=== PATIENT | female | born 1990 | race Caucasian/White ===

== ENCOUNTER 2018-03-31 15:29 | Emergency (ER) | payer MEDICAID ==
[2018-03-31 15:38] VITALS: BP 138/97
--- NOTE | 2018-03-31 15:45 | ER Document Report ---
HPI - HPI Patient complains to provider of: Mouth pain Onset: Yesterday Onset/Duration: Gradual Pain Level: 4 Context: 27-year-old tearful female complaining of upper and lower gum and teeth pain. She also states she has a migraine headache on that side which is common for her. No visual disturbances. No fever or chills. No mouth swelling. She wants a Toradol shot and something topical to help ease the mouth pain. The headache cocktail before but she needs to drive home so she just wants a Toradol shot. Associated Symptoms: None Exacerbated by: Denies Relieved by: Denies Similar symptoms previously: Yes Recently seen / treated by doctor: No - ROS ROS below otherwise negative: Yes Systems Reviewed and Negative: Yes All other systems reviewed and negative - REPRODUCTIVE LMP: 02/20/2018 Past Medical History - General Information source: Patient - Social History Smoking Status: Never Smoker Frequency of alcohol use: None Drug Abuse: None Lives with: Family Family History: Reviewed & Not Pertinent - Medical History Medical History: Negative Surgical Hx: Negative Vertical Provider Document - CONSTITUTIONAL Agree With Documented VS: Yes Exam Limitations: No Limitations - INFECTION CONTROL TRAVEL OUTSIDE OF THE [place] IN LAST 30 DAYS: No - HEENT HEENT: Normocephalic, PERRLA. negative: Conjuctival Injection Notes: Partially erupted noninfected nor is her gingivitis third molars. No dental decay. No facial swelling. - NECK Neck: Supple. negative: Lymphadenopathy-Left, Lymphadenopathy-Right - RESPIRATORY Respiratory: Breath Sounds Normal, No Respiratory Distress - CARDIOVASCULAR Cardiovascular: Regular Rate, Regular Rhythm Course - Vital Signs Vital signs: Temp Pulse Resp BP Pulse Ox 98.6 F 89 18 138/97 H 97 03/31/18 15:37 03/31/18 15:37 03/31/18 15:37 03/31/18 15:37 03/31/18 15:37 Discharge - Discharge Clinical Impression: Partially erupted wisdom teeth, dental pain Headache Qualifiers: Headache type: unspecified Headache chronicity pattern: unspecified pattern Intractability: not intractable Qualified Code(s): R51 - Headache Condition: Good Disposition: HOME, SELF-CARE Instructions: Dentist, Toothache ([facility]), Topical Lidocaine ([facility]), Toradol Injection ([facility]), Warm Packs ([facility]) Additional Instructions: See the dentist Warm compress Return to the emergency room worsening of the symptoms Prescriptions: Ibuprofen [Motrin 800 mg Tablet] 800 mg PO Q8HP PRN #30 tablet PRN Reason:
[2018-03-31] MEDS ORDERED: KETOROLAC TROMETHAMINE 60 MG/2 ML SDV IM ONE (15:55)
[2018-03-31] MEDS ORDERED: LIDOCAINE 2% VISCOUS SOLN 20 ML UDCUP PO ONE (15:55)
[2018-03-31] MEDS ORDERED: ONDANSETRON 4 MG TAB.RAPDIS PO ONE (16:06)
== END 2018-03-31 16:14 | disposition home or self-care (01) ==
LOC: ER 15:29
DX: K00.6 Disturbances in tooth eruption (principal); G43.909 Migraine, unspecified, not intractable, without status migrainosus
CPT/HCPCS: 99283; 96372; J1885; S0119; J3490

== ENCOUNTER 2018-12-11 17:07 | Outpatient (CLI) | payer MEDICAID ==
[2018-12-11 18:00] LABS: ABSOLUTE BASOPHILS # (AUTO) 0.1 10^3/uL (0.0-0.2); ABSOLUTE EOSINOPHILS # (AUTO) 0.1 10^3/uL (0.0-0.6); ABSOLUTE LYMPHOCYTES (AUTO) 1.6 10^3/uL (0.5-4.7); ABSOLUTE MONOCYTES (AUTO) 0.6 10^3/uL (0.1-1.4); ABSOLUTE NEUT (AUTO) 7.9 10^3/uL (1.7-8.2); BASOPHILS % (AUTO) 0.7 % (0-2); EOSINOPHILS % (AUTO) 0.6 % (0-6); HEMATOCRIT 36.7 % (36.0-47.0); HEMOGLOBIN 12.7 g/dL (12.0-15.5); LYMPHOCYTES % (AUTO) 15.8 % (13-45); MEAN CORPUSCULAR HEMOGLOBIN 30.8 pg (27.0-33.4); MEAN CORPUSCULAR HGB CONC 34.5 g/dL (32.0-36.0); MEAN CORPUSCULAR VOLUME 89 fl (80-97); MONOCYTES % (AUTO) 5.8 % (3-13); PLATELET COUNT 276 10^3/uL (150-450); RED BLOOD COUNT 4.12 10^6/uL (3.72-5.28); RED CELL DISTRIBUTION WIDTH 13.4 % (11.5-14.0); SEGMENTED NEUTROPHILS % (AUTO) 77.1 % (42-78); TOTAL CELLS COUNTED % (AUTO) 100 %; WHITE BLOOD COUNT 10.3 10^3/uL (4.0-10.5)
[2018-12-11 18:14] LABS: APPEARANCE,URINE CLOUDY; BILIRUBIN,URINE NEGATIVE (NEGATIVE); COLOR,URINE AMBER; GLUCOSE, URINE NEGATIVE (NEGATIVE); KETONES,URINE NEGATIVE (NEGATIVE); LEUKOCYTE ESTERASE,URINE MODERATE (NEGATIVE); NITRITE,URINE NEGATIVE (NEGATIVE); PROTEIN,URINE 100 mg/dL (NEGATIVE); URINE SPECIFIC GRAVITY 1.027
[2018-12-11 18:40] LABS: ALANINE AMINOTRANSFERASE < 6 U/L (9-52); ALBUMIN 3.6 g/dL (3.5-5.0); ALKALINE PHOSPHATASE 158 U/L (38-126); ANION GAP 10 (5-19); ASPARTATE AMINO TRANSFERASE 14 U/L (14-36); BILIRUBIN,DIRECT 0.3 mg/dL (0.0-0.4); BILIRUBIN,TOTAL 0.3 mg/dL (0.2-1.3); BLOOD UREA NITROGEN 14 mg/dL (7-20); CALCIUM 9.3 mg/dL (8.4-10.2); CARBON DIOXIDE 21 mmol/L (22-30); CHLORIDE 108 mmol/L (98-107); GLUCOSE 98 mg/dL (75-110); POTASSIUM 4.2 mmol/L (3.6-5.0); SODIUM 138.9 mmol/L (137-145); TOTAL PROTEIN 6.6 g/dL (6.3-8.2); URIC ACID 6.5 mg/dL (2.5-6.2)
[2018-12-11 18:51] LABS: URINE AMPHETAMINES SCREEN NEGATIVE; URINE BENZODIAZEPINES SCREEN NEGATIVE; URINE COCAINE SCREEN NEGATIVE; URINE MARIJUANA (THC) SCREEN NEGATIVE; URINE METHADONE SCREEN NEGATIVE; URINE PHENCYCLIDINE SCREEN NEGATIVE
[2018-12-11 18:58] LABS: URINE BARBITURATES SCREEN UNCONFIRMED POSITIVE
--- NOTE | 2018-12-11 19:04 | L&D Progress Notes ---
PROGRESS NOTES Datetime Report Generated by CPN: 12/11/2018 19:04 PROGRESS NOTE Impression Other: elevated BP Procedures- Other: monitor Plan Other: PIH work up Vital Signs : Reviewed Vital Signs Comments: elevated BP Comment: Pt instructed to go to L_D this morning secondary to elevated BP and just arrived at approx 1700. She underwent a PIH work up and all of her labs are WNL except her uric acid is elevated. She has +1 proteinuria, but is dehydrated. She denies HAs, vision changes and RUQ tenderness. I will discharge her with pre-eclampsia precautions. She will start her 24 urine in the morning. FETUS A FHR - Baseline: 120s Monitoring: External US Accelerations: 15X15 Decelerations: None FHR Category: Category I : 37.4 SIGNATURE SIGNATURE: [id number] Signature: with User ID: [email or web address]
[2018-12-11 20:23] LABS: UR PRO/CREAT RATIO RESULT 0.1 mg/mg (0.0-0.2); URINE CREATININE 339.3 mg/dL (16-327); URINE PROTEIN 25.8 mg/dL (<12)
--- NOTE | 2018-12-11 21:02 | Non Stress Test Report ---
Non Stress Test Datetime Report Generated by CPN: 12/11/2018 21:02 DEMOGRAPHIC Test Number: 1 EGA NST: 37.4 INDICATION Indication for Study: Ordered by Provider MONITORING Monitor Explained: Monitor Explained; Test Explained; Patient Verbalized Understanding Time on Monitor: 12/11/2018 17:50 Time off Monitor: 12/11/2018 18:10 NST Duration: 20 NST INTERVENTIONS NST Interventions: None Physician Notified NST: A. zavaleta, CNM BABY A: [id number] BABY A Movement : Present Contraction Frequency : occasional FHR Baseline : 135 Accelerations : 15X15 Decelerations : None Variability : Moderate 6-25bpm NST Review: Meets Criteria for Reactive NST NST Review and Verified By : SHANE Cope NST Results: Reactive NST REPORT Report Trigger: Send Report
[2018-12-13 18:01] LABS: URINE CREATININE 75.9 mg/dL (16-327); URINE PROTEIN 23.6 mg/dL (<12)
[2018-12-13 18:02] LABS: 24 HOUR URINE PROTEIN RESULT 392 mg/day (42-225); 24 HR URINE CREAT RESULT 1.3 mg/day (0.8-2.0)
== END 2018-12-11 20:55 | disposition home or self-care (01) ==
LOC: LC 17:07
PROVIDERS: ATTEND Obstetrics & Gynecology
PROC: 4A1HXCZ Monitoring of Products of Conception, Cardiac Rate, External Approach (ICD-10-PCS; principal; 2018-12-11)
DX: O12.13 Gestational proteinuria, third trimester (principal); O16.3 Unspecified maternal hypertension, third trimester; Z3A.37 37 weeks gestation of pregnancy
CPT/HCPCS: 36415; 59025; 80053; 80307; 81005; 82570; 83615; 84156; 84550; 85025; 86592; 86850; 86900; 86901; 87086

== ENCOUNTER 2018-12-14 15:31 | Inpatient (IN) | payer MEDICAID ==
[2018-12-14] MEDS ORDERED: PENICILLIN G POTASSIUM 5,000,000 UNIT in DEXTROSE 5%-WATER 100 ML IV ONE (15:47)
[2018-12-14] MEDS ORDERED: OXYTOCIN/NORMAL SALINE 20 UNIT/1,000 ML RTUINJ IV PRN (15:47)
[2018-12-14] MEDS ORDERED: ACETAMINOPHEN 325 MG TABLET PO PRN (15:47)
[2018-12-14] MEDS ORDERED: RINGERS SOLUTION,LACTATED 300 ML IV ONE (15:47)
[2018-12-14] MEDS ORDERED: PENICILLIN G-K 5 MILLION UNIT VIAL ONE ×2 (16:45→21:13)
[2018-12-14 16:53] LABS: ABSOLUTE EOSINOPHILS # (AUTO) 0.1 10^3/uL (0.0-0.6); ABSOLUTE LYMPHOCYTES (AUTO) 1.8 10^3/uL (0.5-4.7); ABSOLUTE MONOCYTES (AUTO) 0.5 10^3/uL (0.1-1.4); ABSOLUTE NEUT (AUTO) 7.8 10^3/uL (1.7-8.2); BASOPHILS % (AUTO) 0.3 % (0-2); EOSINOPHILS % (AUTO) 0.8 % (0-6); HEMATOCRIT 37.4 % (36.0-47.0); HEMOGLOBIN 12.7 g/dL (12.0-15.5); LYMPHOCYTES % (AUTO) 17.9 % (13-45); MEAN CORPUSCULAR HEMOGLOBIN 30.6 pg (27.0-33.4); MEAN CORPUSCULAR HGB CONC 33.9 g/dL (32.0-36.0); MEAN CORPUSCULAR VOLUME 90 fl (80-97); MONOCYTES % (AUTO) 5.1 % (3-13); PLATELET COUNT 270 10^3/uL (150-450); RED BLOOD COUNT 4.15 10^6/uL (3.72-5.28); RED CELL DISTRIBUTION WIDTH 13.7 % (11.5-14.0); SEGMENTED NEUTROPHILS % (AUTO) 75.9 % (42-78); TOTAL CELLS COUNTED % (AUTO) 100 %; WHITE BLOOD COUNT 10.3 10^3/uL (4.0-10.5)
--- NOTE | 2018-12-14 16:58 | Admission Physical ---
Datetime Report Generated by CPN: 12/14/2018 16:58 CURRENT ADMISSION Chief Complaint: Sent from OB Office for Evaluation and Treatment - Please Specify Chief Complaint Other: headaches +vision changes Indication for Induction: PreEclampsia Admit Impression : Active Labor Admit Plan: Initiate Labor Induction Protocol ALLERGIES Medication Allergies: No Medication Allergies: No Known Allergies (12/11/2018) Latex: No Latex Allergies Food Allergies: n/a Environmental Allergies: n/a OBSTETRICAL HISTORY EDC: 12/28/2018 00:00 : 4 Para: 3 Term: 3 : 0 SAB: 0 IAB: 0 Ectopic: 0 Livin Cesareans: 0 VBACs: 0 Multiple Births: 0 Gestational Diabetes: No Rh Sensitization: No Incompetent Cervix: No CELESTE: No Infertility: No ART Treatment: No Uterine Anomaly: No IUGR: No Hx Previous C/S: No Macrosomia: No Hx Loss/Stillborn: No PIH: No Hx : No Placenta Previa/Abruption: No Depression/PP Depression: Yes PTL/PROM: No Post Hemorrhage: No Current Procedures: Ultrasound; NST SEE RECORDS Alcohol: No Marijuana : No Cocaine: No Other Illicit Drugs: No Cigarettes: Never Smoker. [id number] MEDICAL HISTORY Diabetes: No Blood Transfusion: No Pulmonary Disease (Asthma, TB): No Breast Disease: No Hypertension: Yes Sixth Grade Teacher Surgery: No Heart Disease: No Hosp/Surgery: No Autoimmune Disorder: No Anesthetic Complications: No Kidney Disease: No Abnormal Pap Smear: No Neuro/Epilepsy: No Psychiatric Disorders: No Other Medical Diseases: No Hepatitis/Liver Disease: No Significant Family History: No Varicosities/Phlebitis: No Trauma/Violence : No Thyroid Dysfunction: No Medical History Comments: hernia repair, gallbladder, kidney stone removal, and tonsilectomy INFECTIOUS HISTORY Gonorrhea: No Genital Herpes: No Chlamydia: No Tuberculosis: No Syphilis: No Hepatitis: No HIV/AIDS Exposure: No Rash or Viral Illness: No HPV: No PHYSICAL EXAM General: Normal HEENT: Deferred Neurologic: Normal Thyroid: Deferred Heart: Normal Lungs: Normal Breast: Deferred Back: Deferred Abdomen: Normal Genitourinary Exam: Deferred Extremities: Normal DTRs: Normal Pelvic Type: Adequate VAGINAL EXAM Dilatation: 3 Effacement: 50 Station: -3 MEMBRANES Membranes: Intact FETUS A Monitoring: External US FHR- Baseline: 145 Variability: Moderate 6-25bpm Accelerations: 15X15 Decelerations: None Admit Comment: sent from [facility] for admit Pre-Eclampsia 24*urine 392 PLANS FOR LABOR AND DELIVERY Labor and Delivery: None Pain Management: Epidural Feeding Preference: Formula Benefit of Breast Feed Discussed: Yes Circumcision: No INFORMED CONSENT Assignment: Isabell Rodriguez MD Signature: with User ID: [email or web address] : with User ID: [email or web address]
[2018-12-14 17:05] LABS: ALANINE AMINOTRANSFERASE 7 U/L (9-52); ALBUMIN 3.7 g/dL (3.5-5.0); ALKALINE PHOSPHATASE 173 U/L (38-126); ANION GAP 10 (5-19); ASPARTATE AMINO TRANSFERASE 14 U/L (14-36); BILIRUBIN,DIRECT 0.2 mg/dL (0.0-0.4); BILIRUBIN,TOTAL 0.2 mg/dL (0.2-1.3); BLOOD UREA NITROGEN 10 mg/dL (7-20); CALCIUM 9.9 mg/dL (8.4-10.2); CARBON DIOXIDE 22 mmol/L (22-30); CHLORIDE 105 mmol/L (98-107); GLUCOSE 80 mg/dL (75-110); POTASSIUM 4.2 mmol/L (3.6-5.0); TOTAL PROTEIN 6.9 g/dL (6.3-8.2); URIC ACID 5.4 mg/dL (2.5-6.2)
[2018-12-14 17:09] LABS: URINE AMPHETAMINES SCREEN NEGATIVE; URINE BENZODIAZEPINES SCREEN NEGATIVE; URINE COCAINE SCREEN NEGATIVE; URINE MARIJUANA (THC) SCREEN NEGATIVE; URINE METHADONE SCREEN NEGATIVE; URINE PHENCYCLIDINE SCREEN NEGATIVE
[2018-12-14 17:13] LABS: URINE BARBITURATES SCREEN UNCONFIRMED POSITIVE
[2018-12-14 17:14] LABS: UR PRO/CREAT RATIO RESULT 0.6 mg/mg (0.0-0.2); URINE CREATININE 83.6 mg/dL (16-327); URINE PROTEIN 52.2 mg/dL (<12)
[2018-12-14 17:16] LABS: AMORPHOUS SEDIMENT,URINE TRACE /HPF; APPEARANCE,URINE CLOUDY; BILIRUBIN,URINE NEGATIVE (NEGATIVE); COLOR,URINE YELLOW; GLUCOSE, URINE NEGATIVE (NEGATIVE); KETONES,URINE NEGATIVE (NEGATIVE); LEUKOCYTE ESTERASE,URINE LARGE (NEGATIVE); NITRITE,URINE NEGATIVE (NEGATIVE); PROTEIN,URINE 30 mg/dL (NEGATIVE); URINE SPECIFIC GRAVITY 1.016; UROBILINOGEN,URINE NEGATIVE mg/dL (<2.0)
[2018-12-14] MEDS: RINGERS SOLUTION,LACTATED 1,000 ML IV PRN ×2 (17:24→21:19)
[2018-12-14] MEDS ORDERED: HYDRALAZINE HCL INJ/PF 20 MG/1 ML SDV IV ONE (18:00)
[2018-12-14] MEDS ORDERED: HYDRALAZINE HCL INJ/PF 20 MG/1 ML SDV ONE (18:01)
[2018-12-14] MEDS ORDERED: LIDOCAINE 1% INJ-PF (10 MG/ML) 30 ML SDV ONE (19:24)
[2018-12-14] MEDS ORDERED: OXYTOCIN 10 UNIT/ML VIAL ONE (19:24)
[2018-12-14] MEDS ORDERED: MISOPROSTOL 0.2 MG TABLET ONE (19:24)
[2018-12-14] MEDS ORDERED: OXYTOCIN/NORMAL SALINE 20 UNIT/1,000 ML RTUINJ ONE (19:25)
[2018-12-14] MEDS ORDERED: BUTALB/ACETAMINOPHEN/CAFFEINE 1 TAB EACH PO ONE (19:49)
[2018-12-14] MEDS ORDERED: BUTALB/ACETAMINOPHEN/CAFFEINE 1 TAB EACH ONE (20:11)
[2018-12-14] MEDS: PENICILLIN G POTASSIUM 2,500,000 UNIT in DEXTROSE 5%-WATER 50 ML IV SCH (21:18)
[2018-12-15] MEDS ORDERED: BUTALB/ACETAMINOPHEN/CAFFEINE 1 TAB EACH PO ONE (00:15)
[2018-12-15] MEDS ORDERED: BUTALB/ACETAMINOPHEN/CAFFEINE 1 TAB EACH ONE (00:15)
[2018-12-15] MEDS ORDERED: PENICILLIN G-K 5 MILLION UNIT VIAL ONE (01:15)
[2018-12-15] MEDS: PENICILLIN G POTASSIUM 2,500,000 UNIT in DEXTROSE 5%-WATER 50 ML IV SCH (01:27)
[2018-12-15] MEDS ORDERED: NALBUPHINE HCL INJ 10 MG/1 ML AMPULE ONE (01:50)
[2018-12-15] MEDS ORDERED: PROMETHAZINE HCL INJ 25 MG/1 ML VIAL ONE (01:50)
[2018-12-15] MEDS ORDERED: EPHEDRINE SULFATE INJ 50 MG/1 ML AMPULE ONE (02:00)
[2018-12-15] MEDS ORDERED: PROMETHAZINE HCL INJ 25 MG/1 ML VIAL IV ONE (02:00)
[2018-12-15] MEDS ORDERED: NALBUPHINE HCL INJ 10 MG/1 ML AMPULE INJ ONE (02:00)
[2018-12-15] MEDS ORDERED: FENTANYL/BUPIVACAINE/NS/PF 300 MCG/150 ML RTUINJ EPI ONE (02:00)
[2018-12-15] MEDS ORDERED: BUPIVACAINE HCL 0.25 % INJ/PF (2.5 MG/1 ML) 30 ML VIAL ONE (02:01)
[2018-12-15] MEDS ORDERED: LIDOCAINE 1.5%/EPINEPHRINE INJ-PF 30 ML SDV ONE (02:01)
[2018-12-15] MEDS ORDERED: ONDANSETRON HCL INJ/PF 4 MG/2 ML SDV ONE (03:06)
[2018-12-15] MEDS ORDERED: ONDANSETRON HCL INJ/PF 4 MG/2 ML SDV IV ONE (03:30)
[2018-12-15] MEDS ORDERED: ACETAMINOPHEN WITH CODEINE #3 TABLET ONE (05:21)
[2018-12-15] MEDS ORDERED: IBUPROFEN 800 MG TABLET ONE (05:21)
[2018-12-15] MEDS ORDERED: BENZOCAINE/MENTHOL AEROSOL SPRAY 56 ML TOP PRN (05:44)
[2018-12-15] MEDS ORDERED: ACETAMINOPHEN 650 MG SUPP.RECT PR PRN (05:44)
[2018-12-15] MEDS ORDERED: OXYTOCIN/NORMAL SALINE 20 UNIT/1,000 ML RTUINJ IV PRN (05:44)
[2018-12-15] MEDS ORDERED: DIBUCAINE 1% OINTMENT 28 GM TP PRN (05:44)
[2018-12-15] MEDS ORDERED: GLYCERIN/WITCH HAZEL LEAF 1 EACH MED..PAD TP PRN (05:44)
[2018-12-15] MEDS ORDERED: PROMETHAZINE HCL INJ 25 MG/1 ML VIAL IV PRN (05:44)
[2018-12-15] MEDS ORDERED: DIPHENHYDRAMINE HCL 25 MG CAPSULE PO PRN (05:44)
[2018-12-15] MEDS ORDERED: MAGNESIUM HYDROXIDE SUSP 30 ML UDCUP PO PRN (05:44)
[2018-12-15] MEDS ORDERED: MEASLES,MUMPS&RUBELLA VACC/PF 0.5 ML VIAL SUBCUT PRN (05:44)
[2018-12-15] MEDS ORDERED: PROMETHAZINE HCL 25 MG SUPP.RECT PR PRN (05:44)
[2018-12-15] MEDS ORDERED: DIPH/PERTUSS(ACELL)/TETANUS VAC/PF 0.5 ML SYR (>=10YO) IM PRN (05:44)
[2018-12-15] MEDS ORDERED: NA PHOS,M-B/NA PHOS,DI-BA (ADULT) 133 ML ENEMA PR PRN (05:44)
[2018-12-15] MEDS ORDERED: ZOLPIDEM TARTRATE 5 MG TABLET PO PRN (05:44)
[2018-12-15] MEDS ORDERED: PROMETHAZINE HCL 25 MG TABLET PO PRN (05:44)
[2018-12-15] MEDS ORDERED: PSEUDOEPHEDRINE HCL 30 MG TABLET PO PRN (05:44)
--- NOTE | 2018-12-15 07:23 | Delivery Summary ---
Del Sum A-C Datetime Report Generated by CPN: 12/15/2018 07:23 DELIVERY PERSONNEL DELIVERY PERSONNEL: [id number] Delivery Doctor:: Isabell Rodriguez MD Labor and Delivery Nurse:: Alisa Dejesus RNsteam brush operator Nurse:: Sandy Rubin RN Pole Inspector/WORKPLACE REHABILITATION OFFICER: Wandy Ross, ST MATERNAL INFORMATION Delivery Anesthesia: Epidural Medications After Delivery: Pitocin Drip 20 Units/1000ml NSS Estimated Blood Loss (ml): 200 Maternal Complications: Other Complication Details: preclampsia LABOR SUMMARY EDC: 12/28/2018 00:00 No. Babies in Womb: 1 Attempted: No Labor Anesthesia: Epidural LABOR INFORMATION Reason for Induction: Pre-Eclampsia Onset of Labor: 12/15/2018 01:56 Complete Dilatation: 12/15/2018 05:05 Oxytocin: Induction Group B Beta Strep: Positive Antibiotics # of Doses: 3 Antibiotics Time of Last Dose: 0129 Name of Antibiotic Given: PCN Steroids Given: None Reason Steroids Not Administered: Not Applicable MEMBRANES Membranes Rupture Method: Artificial Rupture of Membranes: 12/15/2018 05:00 Length of Rupture (hr): 0.13 Amniotic Fluid Color: Clear Amniotic Fluid Amount: Moderate Amniotic Fluid Odor: Normal STAGES OF LABOR Stage 1 hr: 3 Stage 1 min: 9 Stage 2 hr: 0 Stage 2 min: 3 Stage 3 hr: 0 Stage 3 min: 2 Total Time in Labor hr: 3 Total Time in Labor min: 14 VAGINAL DELIVERY Episiotomy: None Laceration #1: None Laceration Extension #1: N/A Laceration Repair: Not Applicable Sponge Count Correct: Yes Sharps Count Correct: Yes CSECTION DELIVERY Primary Indication: N/A Secondary Indication: N/A CSection Incidence: N/A Labor: N/A Elective: N/A CSection Incision: N/A Uterine Closure: Double-layer closure BABY A INFORMATION Delivery Date/Time: 12/15/2018 05:08 Method of Delivery: Vaginal Born in Route : No : N/A Forceps: N/A Vacuum Extraction: N/A Shoulder Dystocia : No PRESENTATION/POSITION BABY A Presentation: Cephalic Cephalic Presentation: Vertex Vertex Position: Left Occipital Anterior Breech Presentation: N/A PLACENTA INFORMATION BABY A Placenta Delivery Time : 12/15/2018 05:10 Placenta Method of Delivery: Spontaneous Placenta Status: Delivered SCORES BABY A Heart Rate 1 min: >100 bpm Resp Effort 1 min: Good Cry Reflex Irritability 1 min: Cough or Sneeze or Pulls Away Muscle Tone 1 min: Active Motion Color 1 min: Blue/Pale SCORE 1 MIN: 8 Heart Rate 5 min: >100 bpm Resp Effort 5 min: Good Cry Reflex Irritability 5 min: Cough or Sneeze or Pulls Away Muscle Tone 5 min: Active Motion Color 5 min: Blue/Pale SCORE 5 MIN: 8 INFORMATION BABY A Gestational Age at Delivery: 38.1 Gestational Status: Early Term- 37- 38.6 Weeks Infant Outcome : Liveborn Infant Condition : Stable Sex: Male IDENTIFICATION BABY A Infant Verification Date/Time: 12/15/2018 05:46 ID Band Number: [id number] Mother's Name Verified: Yes Infant RN Verifying Infant: Scottie RN/ [place] RN WEIGHT/LENGTH BABY A Infant Birthweight (gm): 3240 Infant Weight (lb): 7 Infant Weight (oz): 2 Length (in): 20.00 Infant Length (cm): 50.80 CORD INFORMATION BABY A No. Cord Vessels: 3 Nuchal Cord : other Nuchal Cord- Other: body cord Cord Blood Taken: Yes-For Eval (Mom's Blood Type - or O+) Infant Suction: None ASSESSMENT BABY A Infant Complications: None Physical Findings at Delivery: Within Normal Limits Physical Findings- Other: see nursery assessment Infant Respirations: Appears Normal Skin to Skin: Yes Skin to Skin Time (min): 15 Auto Travel Counselor/ALS Called : No Infant Care By: Medina Rubin RN Transferred To: Remains with Mother BABY B INFORMATION : N/A SIGNATURES Signature: with User ID: [email or web address] : I was personally available for consultation and serving as supervising physician for the MLP.
[2018-12-15] MEDS: IBUPROFEN 800 MG TABLET PO SCH ×3 (10:21→22:09)
[2018-12-15] MEDS: SENNOSIDES/DOCUSATE 8.6-50 MG 1 EACH TABLET PO SCH (10:24)
[2018-12-15] MEDS: FERROUS SULFATE 325 MG TABLET PO SCH ×2 (10:24→17:17)
[2018-12-15] MEDS: PRENATAL VITAMIN W DHA CAPSULE PO SCH (10:24)
[2018-12-15] MEDS: DOCUSATE SODIUM 100 MG CAPSULE PO SCH ×2 (10:24→17:17)
[2018-12-15] MEDS: FAMOTIDINE 20 MG TABLET PO SCH ×2 (10:24→22:09)
--- NOTE | 2018-12-15 11:05 | PDOC PROGRESS REPORT ---
Subjective-OB Progress Note for:: 12/15/18 Subjective: Pt doing well. No concerns. Reports light bleeding, reg diet and voiding without difficulty. Physical Exam (OB) Vital Signs: Intake & Output 12/14/18 12/15/18 12/16/18 06:59 06:59 06:59 Intake Total 540 Balance 540 Weight 129.8 kg - PIH/Pre-Eclampsia Headache: Absent Epigastric Pain: No Visual Changes: No - Lochia Lochia Amount: Small 10-25 ml Lochia Color: Rubra/Red - Abdomen Description: Round Fundal Description: Firm Fundal Height: u/u - u/2 Objective-Diagnostic Laboratory: 12/14/18 16:28 12/14/18 16:28 12/14/18 12/14/18 12/14/18 16:00 16:28 16:28 WBC 10.3 RBC 4.15 Hgb 12.7 Hct 37.4 MCV 90 MCH 30.6 MCHC 33.9 RDW 13.7 Plt Count 270 Seg Neutrophils % 75.9 Lymphocytes % 17.9 Monocytes % 5.1 Eosinophils % 0.8 Basophils % 0.3 Absolute Neutrophils 7.8 Absolute Lymphocytes 1.8 Absolute Monocytes 0.5 Absolute Eosinophils 0.1 Absolute Basophils 0.0 Sodium 137.0 Potassium 4.2 Chloride 105 Carbon Dioxide 22 Anion Gap 10 BUN 10 Creatinine 0.56 Est GFR ( Amer) > 60 Est GFR (Non-Af Amer) > 60 Glucose 80 Uric Acid 5.4 Calcium 9.9 Total Bilirubin 0.2 AST 14 ALT 7 L Alkaline Phosphatase 173 H Total Protein 6.9 Albumin 3.7 Urine Color YELLOW Urine Appearance CLOUDY Urine pH 7.0 Ur Specific Lena 1.016 Urine Protein 30 H Urine Glucose (UA) NEGATIVE Urine Ketones NEGATIVE Urine Blood SMALL H Urine Nitrite NEGATIVE Ur Leukocyte Esterase LARGE H Urine WBC (Auto) 11 Urine RBC (Auto) 3 Blood Type Antibody Screen 12/14/18 16:28 WBC RBC Hgb Hct MCV MCH MCHC RDW Plt Count Seg Neutrophils % Lymphocytes % Monocytes % Eosinophils % Basophils % Absolute Neutrophils Absolute Lymphocytes Absolute Monocytes Absolute Eosinophils Absolute Basophils Sodium Potassium Chloride Carbon Dioxide Anion Gap BUN Creatinine Est GFR ( Amer) Est GFR (Non-Af Amer) Glucose Uric Acid Calcium Total Bilirubin AST ALT Alkaline Phosphatase Total Protein Albumin Urine Color Urine Appearance Urine pH Ur Specific Lena Urine Protein Urine Glucose (UA) Urine Ketones Urine Blood Urine Nitrite Ur Leukocyte Esterase Urine WBC (Auto) Urine RBC (Auto) Blood Type O POSITIVE Antibody Screen NEGATIVE Assessment and Plan(PN) - Assessment and Plan (1) Vaginal delivery Is this a current diagnosis for this admission?: Yes (2) Chronic hypertension with superimposed preeclampsia Is this a current diagnosis for this admission?: Yes - Time Spent with Patient Time with patient: Less than 15 minutes Medications reviewed and adjusted accordingly: Yes - Disposition Anticipated Discharge: Home Within: within 48 hours
[2018-12-15] MEDS: ACETAMINOPHEN WITH CODEINE #3 TABLET PO PRN (16:03)
[2018-12-15] MEDS: ZOLPIDEM TARTRATE 5 MG TABLET PO PRN (19:58)
[2018-12-16] MEDS: IBUPROFEN 800 MG TABLET PO SCH ×3 (05:31→21:35)
[2018-12-16] MEDS: ACETAMINOPHEN WITH CODEINE #3 TABLET PO PRN ×3 (05:39→21:38)
[2018-12-16 08:04] LABS: HEMATOCRIT 32.8 % (36.0-47.0); HEMOGLOBIN 11.2 g/dL (12.0-15.5); MEAN CORPUSCULAR HEMOGLOBIN 30.8 pg (27.0-33.4); MEAN CORPUSCULAR HGB CONC 34.1 g/dL (32.0-36.0); MEAN CORPUSCULAR VOLUME 90 fl (80-97); PLATELET COUNT 254 10^3/uL (150-450); RED BLOOD COUNT 3.64 10^6/uL (3.72-5.28); RED CELL DISTRIBUTION WIDTH 13.7 % (11.5-14.0); WHITE BLOOD COUNT 8.5 10^3/uL (4.0-10.5)
[2018-12-16] MEDS: DOCUSATE SODIUM 100 MG CAPSULE PO SCH ×2 (10:00→17:07)
[2018-12-16] MEDS: FERROUS SULFATE 325 MG TABLET PO SCH ×2 (10:00→17:07)
[2018-12-16] MEDS: SENNOSIDES/DOCUSATE 8.6-50 MG 1 EACH TABLET PO SCH (10:00)
[2018-12-16] MEDS: PRENATAL VITAMIN W DHA CAPSULE PO SCH (10:00)
[2018-12-16] MEDS: FAMOTIDINE 20 MG TABLET PO SCH ×2 (10:00→21:35)
--- NOTE | 2018-12-16 10:40 | PDOC PROGRESS REPORT ---
Subjective-OB Progress Note for:: 12/16/18 Subjective: Doing well, no concerns. She reports light bleeding, reg diet and voiding without difficulty. Physical Exam (OB) Vital Signs: Temp Pulse Resp BP Pulse Ox 98.5 F 80 18 141/92 H 96 12/16/18 07:23 12/16/18 07:23 12/16/18 07:23 12/16/18 07:23 12/16/18 07:23 Intake & Output 12/15/18 12/16/18 12/17/18 06:59 06:59 06:59 Intake Total 540 200 Balance 540 200 Weight 129.8 kg - PIH/Pre-Eclampsia DTR's: 1 + Clonus: Negative Headache: Present Epigastric Pain: No Visual Changes: No - Lochia Lochia Amount: Scant < 10 ml Lochia Color: Rubra/Red - Abdomen Description: Soft, Round Hernia Present: No Fundal Description: Firm, Midline Fundal Height: u/u - u/2 Objective-Diagnostic Laboratory: 12/16/18 07:43 12/14/18 16:28 12/16/18 07:43 WBC 8.5 RBC 3.64 L Hgb 11.2 L Hct 32.8 L MCV 90 MCH 30.8 MCHC 34.1 RDW 13.7 Plt Count 254 Assessment and Plan(PN) - Assessment and Plan (1) Vaginal delivery Is this a current diagnosis for this admission?: Yes (2) Chronic hypertension with superimposed preeclampsia Is this a current diagnosis for this admission?: Yes - Time Spent with Patient Time with patient: Less than 15 minutes Medications reviewed and adjusted accordingly: Yes - Disposition Anticipated Discharge: Home Within: within 24 hours
[2018-12-16] MEDS: ZOLPIDEM TARTRATE 5 MG TABLET PO PRN (21:35)
[2018-12-17] MEDS: ACETAMINOPHEN WITH CODEINE #3 TABLET PO PRN (04:05)
[2018-12-17] MEDS: IBUPROFEN 800 MG TABLET PO SCH (05:52)
[2018-12-17] MEDS: SENNOSIDES/DOCUSATE 8.6-50 MG 1 EACH TABLET PO SCH (10:17)
[2018-12-17] MEDS: DOCUSATE SODIUM 100 MG CAPSULE PO SCH (10:17)
[2018-12-17] MEDS: FAMOTIDINE 20 MG TABLET PO SCH (10:17)
[2018-12-17] MEDS: PRENATAL VITAMIN W DHA CAPSULE PO SCH (10:17)
[2018-12-17] MEDS: FERROUS SULFATE 325 MG TABLET PO SCH (10:17)
--- NOTE | 2018-12-17 11:21 | PDOC DISCHARGE SUMMARY ---
Addendum entered and electronically signed by EVE BAY CNM 12/17/18 11:23: Discharge Diagnosis (1) Chronic hypertension with superimposed preeclampsia Current Visit: Yes Code(s): O11.9 - PRE-EXISTING HYPERTENSION WITH PRE- ECLAMPSIA, UNSP TRIMESTER (2) Vaginal delivery Current Visit: Yes Code(s): O80 - ENCOUNTER FOR FULL-TERM UNCOMPLICATED DELIVERY Original Note: Final Diagnosis Discharge Date: 12/17/18 Discharge Data - Discharge Medication Prescriptions: Bupropion HCl [Wellbutrin Sr 150 mg Tablet] 1 tab PO DAILY #30 tablet. Butalbit/Acetamin/Caff/Codeine [Rabkrq-Tndzggschmv-Xzky-Codein] 2 cap PO Q6 PRN #40 cap PRN Reason: mary Duloxetine HCl [Cymbalta 20 mg Capsule.] 1 tab PO DAILY #30 capsule. Ibuprofen [Motrin 800 mg Tablet] 800 mg PO Q8HP PRN #60 tablet PRN Reason: Home Medications: Butalb/Acetaminophen/Caffeine [Fioricet (50-325-40 mg) Tablet] 1 tab PO Q4HP PRN 12/14/18 No122/Iron/Folic Acid [ Multi Tablet] 1 each PO DAILY 12/14/18 Bupropion HCl [Wellbutrin Sr 150 mg Tablet] 1 tab PO DAILY #30 tablet. 9 Butalbit/Acetamin/Caff/Codeine [Hjmsgi-Ohltzzsifed-Bifo-Codein] 2 cap PO Q6 PRN #40 cap 12/17/18 Duloxetine HCl [Cymbalta 20 mg Capsule.] 1 tab PO DAILY #30 capsule. 12/17/18 Ibuprofen [Motrin 800 mg Tablet] 800 mg PO Q8HP PRN #60 tablet 12/17/18 Reason(s) for Admission: Induction of Labor Procedures: NST Intrapartum Procedure(s): Spontaneous Vaginal Delivery - Diagnosis Test Laboratory: Temp Pulse Resp BP Pulse Ox 98.7 F 77 16 137/97 H 97 12/17/18 07:56 12/17/18 07:56 12/17/18 07:56 12/17/18 07:56 12/17/18 07:56 02/22/19 02/22/19 02/24/19 16:00 16:28 07:43 RBC 4.15 3.64 L Hgb 12.7 11.2 L Hct 37.4 32.8 L Urine Opiates Screen NEGATIVE - Discharge information/Instructions Discharge Activity: Balance Activity w/Rest, Pelvic Rest Discharge Diet: Regular Disposition: HOME, SELF-CARE Follow up with: [facility] in: 1, Weeks
[2018-12-17 12:01] VITALS: BP 116/63
== END 2018-12-17 13:34 | disposition home or self-care (01) | DRG 807 ==
LOC: LC 15:31 → LR 15:35 → 2S 12-15 08:26
PROVIDERS: ADMIT Obstetrics & Gynecology; ATTEND Obstetrics & Gynecology
PROC: 3E033VJ Introduction of Other Hormone into Peripheral Vein, Percutaneous Approach (ICD-10-PCS; 2018-12-14)
PROC: 4A1HXCZ Monitoring of Products of Conception, Cardiac Rate, External Approach (ICD-10-PCS; 2018-12-14)
PROC: 10E0XZZ Delivery of Products of Conception, External Approach (ICD-10-PCS; principal; 2018-12-15)
DX: O11.4 Pre-existing hypertension with pre-eclampsia, complicating childbirth (principal); Z37.0 Single live birth; O10.92 Unspecified pre-existing hypertension complicating childbirth; O69.81X0 Labor and delivery complicated by cord around neck, without compression, not applicable or unspecified; O99.824 Streptococcus B carrier state complicating childbirth; Z3A.38 38 weeks gestation of pregnancy
CPT/HCPCS: 36415; 80053; 80307; 81001; 82570; 83615; 84156; 84550; 85025; 85027; 86592; 86850; 86900; 86901; 94760; J0360; J2300; J2405; J2540; J2550; J2590; J3010; J3490

== ENCOUNTER 2018-12-20 11:45 | Inpatient (IN) | payer MEDICAID ==
[2018-12-20] MEDS ORDERED: MAGNESIUM SULFATE 20 GM/500 ML RTUINJ IV PRN (11:55)
[2018-12-20] MEDS ORDERED: MAGNESIUM SULFATE 4 GM/100 ML RTUPB IV ONE ×2 (11:55→12:06)
[2018-12-20] MEDS ORDERED: NIFEDIPINE 30 MG TAB.ER.24 PO ONE (12:06)
[2018-12-20] MEDS ORDERED: MAGNESIUM SULFATE 20 GM/500 ML RTUINJ IV ONE ×2 (12:06→23:44)
[2018-12-20] MEDS ORDERED: BUTALB/ACETAMINOPHEN/CAFFEINE 1 TAB EACH PO PRN (12:08)
--- NOTE | 2018-12-20 12:14 | Admission Physical ---
Datetime Report Generated by CPN: 12/20/2018 12:13 CURRENT ADMISSION Chief Complaint: Sent from OB Office for Evaluation and Treatment - Please Specify Chief Complaint Other: headaches +vision changes Indication for Induction: Not Applicable Admit Impression : Observation/Evaluation; Obstetrical Complication Admit Plan: Admit to Unit ALLERGIES Medication Allergies: No Medication Allergies: No Known Allergies (12/11/2018) Latex: No Latex Allergies Food Allergies: n/a Environmental Allergies: n/a OBSTETRICAL HISTORY EDC: 12/28/2018 00:00 : 4 Para: 3 Term: 3 : 0 SAB: 0 IAB: 0 Ectopic: 0 Livin Cesareans: 0 VBACs: 0 Multiple Births: 0 Gestational Diabetes: No Rh Sensitization: No Incompetent Cervix: No CELESTE: No Infertility: No ART Treatment: No Uterine Anomaly: No IUGR: No Hx Previous C/S: No Macrosomia: No Hx Loss/Stillborn: No PIH: No Hx : No Placenta Previa/Abruption: No Depression/PP Depression: Yes PTL/PROM: No Post Hemorrhage: No Current Procedures: Ultrasound; NST Obstetrical History Comments: G1: G2: G3: G4: SEE RECORDS Alcohol: No Marijuana : No Cocaine: No Other Illicit Drugs: No Cigarettes: Never Smoker. [id number] MEDICAL HISTORY Diabetes: No Blood Transfusion: No Pulmonary Disease (Asthma, TB): No Breast Disease: No Hypertension: Yes Goal Umpire Surgery: No Heart Disease: No Hosp/Surgery: Yes Autoimmune Disorder: No Anesthetic Complications: No Kidney Disease: No Abnormal Pap Smear: No Neuro/Epilepsy: No Psychiatric Disorders: No Other Medical Diseases: No Hepatitis/Liver Disease: No Significant Family History: No Varicosities/Phlebitis: No Trauma/Violence : No Thyroid Dysfunction: No Medical History Comments: hernia repair, gallbladder, kidney stone removal, and tonsilectomy INFECTIOUS HISTORY Gonorrhea: No Genital Herpes: No Chlamydia: No Tuberculosis: No Syphilis: No Hepatitis: No HIV/AIDS Exposure: No Rash or Viral Illness: No HPV: No PHYSICAL EXAM General: Normal HEENT: Normal Neurologic: Normal Thyroid: Normal Heart: Normal Lungs: Normal Breast: Deferred Back: Normal Abdomen: Normal Genitourinary Exam: Normal Extremities: Normal DTRs: Normal Pelvic Type: Adequate VAGINAL EXAM Dilatation: 3 Effacement: 50 Station: -3 MEMBRANES Membranes: Intact FETUS A EGA: 38.6 Monitoring: External US FHR- Baseline: 145 Variability: Moderate 6-25bpm Accelerations: 15X15 Decelerations: None Admit Comment: post pre-eclampsia admit for BP control and magnesium therapy PLANS FOR LABOR AND DELIVERY Labor and Delivery: None Pain Management: Epidural Feeding Preference: Formula Benefit of Breast Feed Discussed: Yes Circumcision: No INFORMED CONSENT Assignment: Isabell Rodriguez MD Signature: with User ID: [email or web address] : with User ID: [email or web address]
[2018-12-20 12:40] LABS: ABSOLUTE EOSINOPHILS # (AUTO) 0.2 10^3/uL (0.0-0.6); ABSOLUTE LYMPHOCYTES (AUTO) 1.8 10^3/uL (0.5-4.7); ABSOLUTE MONOCYTES (AUTO) 0.4 10^3/uL (0.1-1.4); ABSOLUTE NEUT (AUTO) 5.6 10^3/uL (1.7-8.2); BASOPHILS % (AUTO) 0.5 % (0-2); EOSINOPHILS % (AUTO) 2.9 % (0-6); HEMOGLOBIN 10.6 g/dL (12.0-15.5); LYMPHOCYTES % (AUTO) 22.1 % (13-45); MEAN CORPUSCULAR HEMOGLOBIN 30.9 pg (27.0-33.4); MEAN CORPUSCULAR HGB CONC 34.2 g/dL (32.0-36.0); MEAN CORPUSCULAR VOLUME 90 fl (80-97); MONOCYTES % (AUTO) 5.1 % (3-13); PLATELET COUNT 363 10^3/uL (150-450); RED BLOOD COUNT 3.43 10^6/uL (3.72-5.28); RED CELL DISTRIBUTION WIDTH 13.8 % (11.5-14.0); SEGMENTED NEUTROPHILS % (AUTO) 69.4 % (42-78); TOTAL CELLS COUNTED % (AUTO) 100 %; WHITE BLOOD COUNT 8.1 10^3/uL (4.0-10.5)
[2018-12-20 12:56] LABS: URINE AMPHETAMINES SCREEN NEGATIVE; URINE BENZODIAZEPINES SCREEN NEGATIVE; URINE COCAINE SCREEN NEGATIVE; URINE MARIJUANA (THC) SCREEN NEGATIVE; URINE METHADONE SCREEN NEGATIVE; URINE PHENCYCLIDINE SCREEN NEGATIVE
[2018-12-20 12:59] LABS: ALANINE AMINOTRANSFERASE 26 U/L (9-52); ALBUMIN 3.2 g/dL (3.5-5.0); ALKALINE PHOSPHATASE 120 U/L (38-126); ANION GAP 10 (5-19); ASPARTATE AMINO TRANSFERASE 19 U/L (14-36); BILIRUBIN,DIRECT 0.1 mg/dL (0.0-0.4); BILIRUBIN,TOTAL 0.2 mg/dL (0.2-1.3); BLOOD UREA NITROGEN 10 mg/dL (7-20); CALCIUM 8.5 mg/dL (8.4-10.2); CARBON DIOXIDE 24 mmol/L (22-30); CHLORIDE 108 mmol/L (98-107); GLUCOSE 93 mg/dL (75-110); SODIUM 141.6 mmol/L (137-145); TOTAL PROTEIN 5.8 g/dL (6.3-8.2); URIC ACID 5.9 mg/dL (2.5-6.2)
[2018-12-20] MEDS: RINGERS SOLUTION,LACTATED 1,000 ML IV PRN (12:59)
[2018-12-20] MEDS: NIFEDIPINE 30 MG TAB.ER.24 PO SCH (12:59)
[2018-12-20] MEDS ORDERED: BUPROPION HCL 75 MG TABLET PO SCH ×2 (13:00→22:00)
[2018-12-20 13:10] LABS: URINE BARBITURATES SCREEN UNCONFIRMED POSITIVE
[2018-12-20 14:07] LABS: APPEARANCE,URINE SLIGHTLY-CLOUDY; BILIRUBIN,URINE NEGATIVE (NEGATIVE); COLOR,URINE YELLOW; GLUCOSE, URINE NEGATIVE (NEGATIVE); KETONES,URINE NEGATIVE (NEGATIVE); LEUKOCYTE ESTERASE,URINE SMALL (NEGATIVE); NITRITE,URINE NEGATIVE (NEGATIVE); PROTEIN,URINE 30 mg/dL (NEGATIVE); URINE SPECIFIC GRAVITY 1.019; UROBILINOGEN,URINE NEGATIVE mg/dL (<2.0)
[2018-12-20] MEDS ORDERED: BUTALB/ACETAMINOPHEN/CAFFEINE 1 TAB EACH ONE ×2 (17:04→19:26)
[2018-12-20] MEDS ORDERED: IBUPROFEN 800 MG TABLET ONE (17:04)
[2018-12-20] MEDS: IBUPROFEN 800 MG TABLET PO PRN (17:05)
[2018-12-21] MEDS ORDERED: BUTALB/ACETAMINOPHEN/CAFFEINE 1 TAB EACH ONE ×2 (02:02→12:21)
[2018-12-21] MEDS: BUTALB/ACETAMINOPHEN/CAFFEINE 1 TAB EACH PO PRN ×2 (02:06→12:23)
[2018-12-21] MEDS: RINGERS SOLUTION,LACTATED 1,000 ML IV PRN (02:30)
[2018-12-21] MEDS ORDERED: IBUPROFEN 800 MG TABLET ONE ×2 (04:29→15:46)
[2018-12-21] MEDS: IBUPROFEN 800 MG TABLET PO PRN ×2 (04:30→15:57)
[2018-12-21] MEDS ORDERED: HYDROMORPHONE HCL INJ/PF 2 MG/ML AMPULE IV ONE (05:12)
[2018-12-21] MEDS ORDERED: HYDROMORPHONE HCL INJ/PF 2 MG/ML AMPULE ONE (05:15)
[2018-12-21] MEDS ORDERED: ONDANSETRON HCL INJ/PF 4 MG/2 ML SDV ONE (09:49)
[2018-12-21] MEDS ORDERED: DULOXETINE HCL 20 MG CAPSULE.DR PO SCH (10:00)
[2018-12-21] MEDS ORDERED: BUPROPION HCL 75 MG TABLET PO SCH (10:00)
[2018-12-21] MEDS ORDERED: NIFEDIPINE 30 MG TAB.ER.24 PO ONE (10:52)
[2018-12-21] MEDS: NIFEDIPINE 30 MG TAB.ER.24 PO SCH (10:55)
[2018-12-21 14:58] VITALS: BP 138/85
--- NOTE | 2018-12-21 16:39 | PDOC DISCHARGE SUMMARY ---
General - Admit/Disc Date/PCP Admission Date/Primary Care Provider: 12/20/18 11:45 Discharge Date: 12/21/18 - Discharge Diagnosis (1) Chronic hypertension with superimposed preeclampsia Is this a current diagnosis for this admission?: Yes - Additional Information Discharge Diet: As Tolerated Discharge Activity: Activity As Tolerated Prescriptions: Nifedipine [Procardia XL 30 mg Tablet] 30 mg PO BID #60 tab.er.24 Home Medications: No122/Iron/Folic Acid [ Multi Tablet] 1 each PO DAILY 12/14/18 Bupropion HCl [Wellbutrin Sr 150 mg Tablet] 1 tab PO DAILY #30 tablet.sa Butalbit/Acetamin/Caff/Codeine [Qipwob-Jjdjcjwwdhf-Mpdj-Codein] 2 cap PO Q6 PRN #40 cap 12/17/18 Duloxetine HCl [Cymbalta 20 mg Capsule.] 1 tab PO DAILY #30 capsule. 12/17/18 Ibuprofen [Motrin 800 mg Tablet] 800 mg PO Q8HP PRN #60 tablet 12/17/18 Ibuprofen [Motrin 800 mg Tablet] 800 mg PO Q8HP PRN tablet 12/21/18 Nifedipine [Procardia XL 30 mg Tablet] 30 mg PO BID #60 tab.er.24 12/21/18 History of Present Illness Patient complains of: elevated BP History of Present Illness: LISA FAUSTIN is a 28 year old female s/p vaginal delivery last week after IOL due to PreE. She was not discharge on BP meds and was in the office yesterday with OH/blurry vision/RUQ pain and severe range BPs. She was admitted for PP Magnesium and BP control Hospital Course Hospital Course: 28 year old female s/p vaginal delivery last week after IOL due to PreE. She was not discharge on BP meds and was in the office yesterday with OH/blurry vision/RUQ pain and severe range BPs. She was admitted for PP Magnesium and BP control. SHe diuresed well and now with good BP control with procardia. Will increase procardia to BID and pt ok to go home with f/u in office on Monday or Monday. She is aware of signs to look for and will check BP at home and return if feeling bad or severe range BPs return. Physical Exam - Physical Exam Vital Signs: Temp Pulse Resp BP Pulse Ox 97.7 F 73 16 138/85 H 98 12/21/18 14:54 12/21/18 14:54 12/21/18 14:54 12/21/18 14:54 12/21/18 14:54 Intake & Output 12/20/18 12/21/18 12/22/18 06:59 06:59 06:59 Intake Total 100 Balance 100 Weight 126.8 kg General appearance: PRESENT: no acute distress, well-developed, well-nourished Head exam: PRESENT: atraumatic, normocephalic Neck exam: PRESENT: full ROM. ABSENT: carotid bruit, JVD, lymphadenopathy, thyromegaly Respiratory exam: PRESENT: clear to auscultation loyda, symmetrical, unlabored Cardiovascular exam: PRESENT: RRR. ABSENT: diastolic murmur, rubs, systolic murmur Pulses: PRESENT: normal dorsalis pedis pul, +2 pedal pulses bilateral Vascular exam: PRESENT: normal capillary refill GI/Abdominal exam: PRESENT: ascites Rectal exam: PRESENT: deferred Extremities exam: PRESENT: full ROM. ABSENT: calf tenderness, clubbing, pedal edema Neurological exam: PRESENT: alert, awake, oriented to person, oriented to place, oriented to time, oriented to situation, CN II-XII grossly intact. ABSENT: motor sensory deficit Psychiatric exam: PRESENT: appropriate affect, normal mood. ABSENT: homicidal ideation, suicidal ideation Skin exam: PRESENT: dry, intact, warm. ABSENT: cyanosis, rash Result Laboratory Results: 12/20/18 12:25 12/20/18 12:25 Status: Imported from PACS Plan Discharge Plan: Discharge to home
== END 2018-12-21 17:00 | disposition home or self-care (01) | DRG 776 ==
LOC: LR 11:45
PROVIDERS: ADMIT Obstetrics & Gynecology Gynecology; ATTEND Obstetrics & Gynecology Gynecology
DX: O11.5 Pre-existing hypertension with pre-eclampsia, complicating the puerperium (principal)
CPT/HCPCS: 36415; 80053; 80307; 81001; 83615; 84550; 85025; J1170; J2405; J3475; J3490